=== PATIENT | female | born 1995 | race Caucasian/White ===

== ENCOUNTER → 2021-07-07 | Outpatient (CLI) | payer OTHER ==
--- NOTE | 2021-07-08 18:38 | REPVR ---
PROCEDURE INFORMATION: Exam: MR Lumbar Spine Without Contrast Exam date and time: 07/07/2021 7:24 PM Age: 26 years old Clinical indication: Low back pain; Additional info: Other intervertebral disc degeneration TECHNIQUE: Imaging protocol: Multiplanar magnetic resonance images of the lumbar spine without intravenous contrast. COMPARISON: No relevant prior studies available. FINDINGS: Vertebral body height and AP alignment is preserved. There is disc desiccation at L3-L4 through L5-S1. Negative for discitis/osteomyelitis. No epidural fluid collection. Conus medullaris terminates L1. L1-L2: No significant central or foraminal stenosis. L2-L3: No significant central or foraminal stenosis. L3-L4: Mild disc bulge with posterior annular tear. There is superimposed tiny central cranially migrating extrusion. Findings result in mild central canal stenosis without significant foraminal stenosis. L4-L5: Disc bulge with superimposed right central to right subarticular caudally migrating extrusion extending up to 1.6 cm below the adjacent endplate. There is moderate central canal stenosis, severe right lateral recess stenosis and mild right foraminal stenosis. Mass effect upon the traversing right L5 nerve root. L5-S1: Disc bulge with superimposed broad-based right subarticular protrusion. There is severe right lateral recess stenosis and mild central canal stenosis. Mass effect upon the traversing right S1 nerve root. IMPRESSION: 1. 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 2. Right subarticular protrusion at L5-S1 causes severe right lateral recess stenosis and mild central canal stenosis with mass effect upon the traversing right S1 nerve root. 3. Additional findings as above. Electronically signed by: Bon Ramos On 07/08/2021 18:37:49 PM
== END ==
LOC: M RAD 17:28
PROVIDERS: ATTEND Physician Assistant
DX: M51.36 Other intervertebral disc degeneration, lumbar region (principal)